=== PATIENT | female | born 1930 | race Caucasian/White ===

== ENCOUNTER 2017-10-13 01:02 | Inpatient (IN) | payer BC ==
[~2017-10-13] VITALS: Ht 154.9 cm; Wt 64.4 kg
[2017-10-13] MEDS ORDERED: hydrALAZINE HCL 20 MG/ML VL IV ONE (01:45)
[2017-10-13] MEDS ORDERED: LEVETIRACETAM INJ 1,000 MG in D5W 5% 100 ML IV ONE (01:45)
[2017-10-13 01:52] LABS: Basophils # (auto) 0 uL; Basophils % (auto) 0.5 % (0.0-2.0); Eosinophils # (auto) 0 uL; Eosinophils % (auto) 0.6 % (0.0-7.0); Hematocrit 37.1 % (36.0-46.0); Hemoglobin 12.3 g/dL (12.2-16.2); Lymphocytes # (auto) 0.3 uL; Lymphocytes % (auto) 5.6 % (10.0-50.0); Mean Corpuscular Hemoglobin 29.8 pg (28.0-32.0); Mean Corpuscular Hgb Conc. 33.2 g/dL (32.0-36.0); Mean Corpuscular Volume 89.7 fL (80.0-100.0); Monocytes # (auto) 0.2 uL; Monocytes % (auto) 4.3 % (0.0-12.0); Neutrophils # (auto) 5.2 uL; Platelet Count (auto) 181 10^3/uL (140-450); Red Blood Cells 4.14 10^6/uL (4.0-5.20); White Blood Cell 5.8 10^3/uL (4.4-10.8)
[2017-10-13 01:55] LABS: Red Cell Distribution Width 26.9 % (11.8-14.3)
[2017-10-13 02:10] LABS: Alanine Aminotransferase 23 U/L (13-56); Albumin 3.5 g/dL (3.4-5.0); Anion Gap 5 (5-15); Aspartate Aminotransferase 19 U/L (15-37); BUN/Creatinine Ratio 23.5; Blood Urea Nitrogen 16 mg/dL (7-18); Calcium 8.2 mg/dL (8.5-10.1); Carbon Dioxide 27 mmol/L (21-32); Chloride 107 mmol/L (98-107); GFR African American 106 mL/min; GFR Non-African American 87 mL/min; Glucose 130 mg/dL (74-106); Potassium 3.7 mmol/L (3.5-5.1); Sodium 139 mmol/L (136-145)
[2017-10-13] MEDS ORDERED: LEVETIRACETAM 500 MG/5ML INJ IV ONE (02:11)
[2017-10-13 02:14] LABS: Alkaline Phosphatase 75 U/L (45-117); Bilirubin, Total 0.5 mg/dL (0.2-1.0); Total Protein 6.6 g/dL (6.4-8.2)
[2017-10-13] MEDS ORDERED: HYDROcodone-ACET 5/325MG TAB PO PRN (04:30)
[2017-10-13] MEDS ORDERED: ONDANSETRON HCL 4 MG/2 ML VIAL IV PRN (04:30)
[2017-10-13] MEDS ORDERED: ACETAMINOPHEN 500 MG TAB PO PRN (04:30)
[2017-10-13] MEDS: hydrALAZINE HCL 25 MG TAB PO SCH ×3 (06:22→18:39)
[2017-10-13] MEDS: CAPTOPRIL 25 MG TAB PO SCH ×3 (06:23→21:59)
[2017-10-13] MEDS ORDERED: LORazepam 2MG/ML-1ML VIAL IV PRN (06:45)
[2017-10-13] MEDS: LEVOTHYROXINE SODIUM 50 MCG TAB PO SCH (07:52)
[2017-10-13 09:33] LABS: Urine Bacteria NONE SEEN /hpf (None Seen); Urine Blood Negative /uL (Negative); Urine Specific Gravity 1.008 (1.001-1.035); Urine WBC 4 /hpf (0 - 5)
[2017-10-13] MEDS: ASPirin-EC 81 mg tab PO SCH (10:41)
[2017-10-13] MEDS ORDERED: cefTRIAXone 1GM/10ml IVPUSH 10 ML IV ONE (15:00)
[2017-10-13 18:00] VITALS: BP 141/74
[2017-10-13 22:00] VITALS: BP 148/72
[2017-10-13] MEDS: ATORVASTATIN 20 MG TAB PO SCH (22:00)
[2017-10-13] MEDS: LEVETIRACETAM 500 MG TAB PO SCH (22:00)
[2017-10-14] MEDS: hydrALAZINE HCL 25 MG TAB PO SCH ×4 (00:02→18:00)
[2017-10-14 05:00] VITALS: BP 164/76
[2017-10-14] MEDS ORDERED: LEVO125T7 PO (05:22)
[2017-10-14] MEDS ORDERED: CAPT25TA5 PO (05:22)
[2017-10-14] MEDS ORDERED: FERR-20 PO (05:22)
[2017-10-14] MEDS ORDERED: ATOR20TA50 PO (05:22)
[2017-10-14] MEDS ORDERED: DRON400T PO (05:22)
[2017-10-14] MEDS ORDERED: ASPI325T47 PO (05:22)
[2017-10-14] MEDS ORDERED: RIVA10TA PO (05:22)
[2017-10-14] MEDS ORDERED: CARV3.1240 PO (05:22)
[2017-10-14] MEDS ORDERED: HYDR50TA15 PO (05:22)
[2017-10-14] MEDS: CAPTOPRIL 25 MG TAB PO SCH ×3 (06:41→21:37)
[2017-10-14] MEDS: LEVOTHYROXINE SODIUM 50 MCG TAB PO SCH (06:42)
[2017-10-14 08:00] VITALS: BP 127/61
[2017-10-14 09:00] VITALS: BP 127/61
[2017-10-14] MEDS: cefTRIAXone 1GM/10ml IVPUSH 10 ML IV SCH (09:26)
[2017-10-14] MEDS: ASPirin-EC 81 mg tab PO SCH (09:27)
[2017-10-14] MEDS: LEVETIRACETAM 500 MG TAB PO SCH ×2 (09:27→21:38)
[2017-10-14 14:00] VITALS: BP 135/97
[2017-10-14] MEDS ORDERED: CARVEDILOL 3.125 MG TAB PO ONE (16:00)
[2017-10-14 17:00] VITALS: BP 118/66
[2017-10-14] MEDS: ATORVASTATIN 20 MG TAB PO SCH (21:38)
[2017-10-14] MEDS: CARVEDILOL 3.125 MG TAB PO SCH (21:38)
[2017-10-14 22:00] VITALS: BP 127/73
[2017-10-15] VITALS (7 sets, daily range): BP systolic 91–131; BP diastolic 43–61
[2017-10-15] MEDS: hydrALAZINE HCL 25 MG TAB PO SCH ×4 (06:00→18:00)
[2017-10-15] MEDS: CAPTOPRIL 25 MG TAB PO SCH ×3 (06:12→22:12)
[2017-10-15] MEDS: LEVOTHYROXINE SODIUM 50 MCG TAB PO SCH (06:13)
[2017-10-15] MEDS: CARVEDILOL 3.125 MG TAB PO SCH ×2 (10:00→22:11)
[2017-10-15] MEDS: cefTRIAXone 1GM/10ml IVPUSH 10 ML IV SCH (10:39)
[2017-10-15] MEDS: LEVETIRACETAM 500 MG TAB PO SCH ×2 (10:39→22:09)
[2017-10-15] MEDS: ASPirin-EC 81 mg tab PO SCH (10:39)
[2017-10-15] MEDS ORDERED: RIVAROXABAN 10 MG TAB PO SCH (22:00)
[2017-10-15] MEDS: ATORVASTATIN 20 MG TAB PO SCH (22:09)
[2017-10-16 05:10] VITALS: BP 118/60
[2017-10-16] MEDS: hydrALAZINE HCL 25 MG TAB PO SCH ×3 (05:25→12:14)
[2017-10-16] MEDS: CAPTOPRIL 25 MG TAB PO SCH ×2 (05:28→15:39)
[2017-10-16] MEDS: LEVOTHYROXINE SODIUM 50 MCG TAB PO SCH (05:28)
[2017-10-16 05:38] LABS: Basophils # (auto) 0 uL; Basophils % (auto) 0.7 % (0.0-2.0); Eosinophils # (auto) 0.3 uL; Eosinophils % (auto) 5.5 % (0.0-7.0); Hematocrit 38.5 % (36.0-46.0); Lymphocytes # (auto) 0.9 uL; Lymphocytes % (auto) 16.6 % (10.0-50.0); Mean Corpuscular Hemoglobin 30.8 pg (28.0-32.0); Mean Corpuscular Hgb Conc. 33.8 g/dL (32.0-36.0); Mean Corpuscular Volume 91.2 fL (80.0-100.0); Monocytes # (auto) 0.5 uL; Monocytes % (auto) 9.4 % (0.0-12.0); Neutrophils # (auto) 3.6 uL; Neutrophils % (auto) 67.8 % (37.0-80.0); Nucleated Red Blood Cells % 0.1 %; Platelet Count (auto) 186 10^3/uL (140-450); Red Blood Cells 4.23 10^6/uL (4.0-5.20); White Blood Cell 5.4 10^3/uL (4.4-10.8)
[2017-10-16 05:51] LABS: Red Cell Distribution Width 26.1 % (11.8-14.3)
[2017-10-16 05:56] LABS: BUN/Creatinine Ratio 38.5; Calcium 8.6 mg/dL (8.5-10.1); Potassium 3.6 mmol/L (3.5-5.1)
[2017-10-16 09:03] VITALS: BP 106/61
[2017-10-16] MEDS: cefTRIAXone 1GM/10ml IVPUSH 10 ML IV SCH (09:59)
[2017-10-16] MEDS: ASPirin-EC 81 mg tab PO SCH (09:59)
[2017-10-16] MEDS: CARVEDILOL 3.125 MG TAB PO SCH (09:59)
[2017-10-16] MEDS: LEVETIRACETAM 500 MG TAB PO SCH (10:00)
[2017-10-16 13:37] VITALS: BP 136/60
[2017-10-16 14:10] VITALS: BP 136/60
== END 2017-10-16 16:10 | disposition home health service (06) | DRG 101 ==
LOC: EDBD 01:02 → ER 01:10 → TELE 01:11 → TELE-WESTW 17:13
PROVIDERS: ADMIT Nurse Practitioner Family; ATTEND Family Medicine
DX: G40.89 Other seizures (principal); F05 Delirium due to known physiological condition; I48.91 Unspecified atrial fibrillation; G45.9 Transient cerebral ischemic attack, unspecified; I11.0 Hypertensive heart disease with heart failure; I50.9 Heart failure, unspecified; E11.9 Type 2 diabetes mellitus without complications; J32.0 Chronic maxillary sinusitis; I69.354 Hemiplegia and hemiparesis following cerebral infarction affecting left non-dominant side; J98.11 Atelectasis; N39.0 Urinary tract infection, site not specified; I48.92 Unspecified atrial flutter; E03.9 Hypothyroidism, unspecified; E78.00 Pure hypercholesterolemia, unspecified; E78.5 Hyperlipidemia, unspecified; F17.200 Nicotine dependence, unspecified, uncomplicated; I67.2 Cerebral atherosclerosis; I70.0 Atherosclerosis of aorta; Z79.899 Other long term (current) drug therapy; Z82.49 Family history of ischemic heart disease and other diseases of the circulatory system; Z85.3 Personal history of malignant neoplasm of breast
CPT/HCPCS: 36415; 70450; 71045; 80048; 80053; 81001; 84484; 85025; 87086; 93005; 95819; 96365; 96375; 97116; 97163; 97530; J7060